=== PATIENT | female | born 1970 | race Hispanic/Latino ===

== ENCOUNTER 2018-05-06 07:28 | Outpatient (CLI) | payer OTHER ==
--- NOTE | 2018-05-06 10:29 | CT ---
CT ABDOMEN AND PELVIS WITH AND WITHOUT CONTRAST: (Microhematuria protocol) Date: 05/06/18 HISTORY: Microhematuria with pelvic pressure x3 weeks. R31.29. COMPARISON: None. FINDINGS: On the noncontrast portion of the examination, lung bases are clear. No pericardial effusion. There is no nephroureterolithiasis or hydroureteronephrosis. No secondary evidence of recently passed stone. No abnormal renal enhancing mass. No filling defect within the renal calices, ureters, nor th e posterior portion of the urinary bladder. Both ureteral jets are visualized. Spleen is unremarkable, as well as the pancreas. Adrenal glands are unremarkable. No retroperitoneal adenopathy. No dilated loops of large or small bowel. Small volume free fluid in t he pelvis. No dilated loops of large or small bowel. Mild diverticular disease sigmoid colon without active curr ent inflammation. Appendix is felt to be visualized and appears normal. IMPRESSION: No findings to explain patient's microhematuria. No nephroureterolithiasis or hydroureteronephrosis. No secondary evidence of recently passed stone. No abnormal filling defect renal calices, ureters, or urinary bladder. No abnormal enhancing renal mass. POS: [facility]
[2018-05-06] MEDS ORDERED: Iopamidol 370 76% 100 ML VIAL ONE (12:55)
== END 2018-05-06 07:29 | disposition home or self-care (01) ==
LOC: BICCT 07:28 → CT 07:29
PROVIDERS: ATTEND Urology
DX: R31.29 Other microscopic hematuria (principal)
CPT/HCPCS: 74178

== ENCOUNTER 2018-05-27 07:58 | Outpatient (CLI) | payer OTHER | END 2018-05-27 07:59 | disposition home or self-care (01) | LOC: BICMAMMO 07:58 | PROVIDERS: ATTEND Family Medicine | DX: Z12.31 Encounter for screening mammogram for malignant neoplasm of breast (principal); R92.1 Mammographic calcification found on diagnostic imaging of breast | CPT/HCPCS: 77063; 77067 ==

== ENCOUNTER 2019-06-02 07:58 | Outpatient (CLI) | payer BC ==
--- NOTE | 2019-06-02 10:09 | MMO ---
Bilateral MAMMO Bilat Screen [facility]. CLINICAL HISTORY: Patient is 49 years old and is seen for screening. The patient has no family history of breast cancer. The patient has no personal history of cancer. VIEWS: The views performed were: bilateral craniocaudal with tomosynthesis and bilateral mediolateral oblique with tomosynthesis. FILMS COMPARED: The present examination has been compared to prior imaging studies performed at [facility] on 04/28/2015, 04/30/2016, 05/21/2017 and 05/27/2018. MAMMOGRAM FINDINGS: There are scattered fibroglandular densities. There are stable benign appearing calcifications seen in both breasts. There are no suspicious masses, suspicious calcifications, or new areas of architectural distortion. IMPRESSION: THERE IS NO MAMMOGRAPHIC EVIDENCE OF MALIGNANCY. A ROUTINE FOLLOW-UP MAMMOGRAM IN 1 YEAR IS RECOMMENDED. THE RESULTS OF THIS EXAM WERE SENT TO THE PATIENT. ACR BI-RADS Category 2 - Benign finding MAMMOGRAPHY NOTE: 1. A negative mammogram report should not delay a biopsy if a dominant of clinically suspicious mass is present. 2. Approximately 10% to 15% of breast cancers are not detected by mammography. 3. Adenosis and dense breasts may obscure an underlying neoplasm.
== END 2019-06-02 07:59 | disposition home or self-care (01) ==
LOC: BICMAMMO 07:58
PROVIDERS: ATTEND Family Medicine
DX: Z12.31 Encounter for screening mammogram for malignant neoplasm of breast (principal)
CPT/HCPCS: 77063; 77067

== ENCOUNTER 2019-11-05 16:22 | Emergency (ER) | payer BC ==
[2019-11-05] MEDS ORDERED: predniSONE 20 MG TAB ONE (16:53)
[2019-11-05] MEDS ORDERED: Famotidine 20 MG TAB ONE (16:53)
== END 2019-11-05 19:10 | disposition home or self-care (01) ==
LOC: ERS 16:22
DX: T78.09XA Anaphylactic reaction due to other food products, initial encounter (principal); R21 Rash and other nonspecific skin eruption; F41.9 Anxiety disorder, unspecified; F41.0 Panic disorder [episodic paroxysmal anxiety]
CPT/HCPCS: 99284; J7512

== ENCOUNTER 2019-11-08 10:21 | Emergency (ER) | payer BC ==
[2019-11-08 11:00] LABS: #Lymphocytes 1.4 thou/uL (1.20-3.40); #Monocytes 0.3 thou/uL (0.11-0.59); #Neutrophils 8.6 thou/uL (1.40-6.50); %Basophils 0.2 % (0.0-1.0); %Eosinophils 0.3 % (0.0-10.0); %Lymphocytes 13.4 % (21.0-51.0); %Monocytes 2.7 % (0.0-10.0); %Neutrophils 83.4 % (42.0-75.0); Hemoglobin 13.7 g/dL (12.0-16.0); Mean Corpuscular HGB CONC 34.2 g/dL (32.0-36.0); Mean Corpuscular Hemoglobin 30.4 pg (27.0-31.0); Mean Corpuscular Volume 88.7 fL (78.0-98.0); Mean Platelet Volume 6.9 fL (7.4-10.4); Platelet Count 231 thou/uL (130-400); RBC Distribution Width 11.5 % (11.5-14.5); Red Blood Cell (RBC) Count 4.53 mill/uL (4.20-5.40); White Blood Cell (WBC) Count 10.4 thou/uL (4.8-10.8)
[2019-11-08 11:17] LABS: ALT (SGPT) 15 U/L (8-55); AST (SGOT) 11 U/L (5-34); Albumin 4.6 g/dL (3.5-5.0); Alkaline Phosphatase 125 U/L (40-110); Anion Gap 15 mmol/L (10-20); BUN (Urea Nitrogen) 14 mg/dL (7.0-18.7); Bilirubin, Total 0.9 mg/dL (0.2-1.2); Calc. Creatinine Clearance 0 mL/min (70-130); Calcium 9.5 mg/dL (7.8-10.44); Carbon Dioxide 22 mmol/L (22-29); Chloride 110 mmol/L (98-107); Estimated GFR-MDRD 69; Globulin 2.7 g/dL (2.4-3.5); Glucose 117 mg/dL (70-105); Lipase 21 U/L (8-78); Potassium 3.5 mmol/L (3.5-5.1); Protein, Total 7.3 g/dL (6.0-8.3); Sodium 143 mmol/L (136-145)
--- NOTE | 2019-11-08 11:44 | RAD ---
CHEST 1 VIEW: DATE: 11/08/2019. TIME: 12:10 p.m. HISTORY: Chest pain. FINDINGS: The cardiomediastinum is normal. The lungs are expanded and clear. The bony thorax is unremarkable. IMPRESSION: Normal exam. POS: [facility]
[2019-11-08 12:36] LABS: Troponin I Less than 0.010 ng/mL (< 0.028)
== END 2019-11-08 13:08 | disposition home or self-care (01) ==
LOC: ERS 10:21
DX: R07.89 Other chest pain (principal); F41.9 Anxiety disorder, unspecified; F41.0 Panic disorder [episodic paroxysmal anxiety]
CPT/HCPCS: 36415; 71045; 80053; 83690; 84484; 85025; 93005

== ENCOUNTER 2021-01-10 10:03 | Outpatient (CLI) | payer BC ==
--- NOTE | 2021-01-10 10:23 | MMO ---
Bilateral MAMMO Bilat Screen [facility]. CLINICAL HISTORY: Patient is 50 years old and is seen for screening. The patient has no family history of breast cancer. The patient has no personal history of cancer. VIEWS: The views performed were: bilateral craniocaudal with tomosynthesis and bilateral mediolateral oblique with tomosynthesis. FILMS COMPARED: The present examination has been compared to prior imaging studies performed at [facility] on 04/30/2016, 05/21/2017, 05/27/2018 and 06/02/2019. This study has been interpreted with the assistance of computer-aided detection. MAMMOGRAM FINDINGS: There are scattered fibroglandular densities. There are no suspicious masses, suspicious calcifications, or new areas of architectural distortion. IMPRESSION: THERE IS NO MAMMOGRAPHIC EVIDENCE OF MALIGNANCY. A ROUTINE FOLLOW-UP MAMMOGRAM IN 1 YEAR IS RECOMMENDED. THE RESULTS OF THIS EXAM WERE SENT TO THE PATIENT. ACR BI-RADS Category 1 - Negative MAMMOGRAPHY NOTE: 1. A negative mammogram report should not delay a biopsy if a dominant of clinically suspicious mass is present. 2. Approximately 10% to 15% of breast cancers are not detected by mammography. 3. Adenosis and dense breasts may obscure an underlying neoplasm. Reported by: SUDHIR JOYCE MD Electonically Signed: [id number]
== END 2021-01-10 10:04 | disposition home or self-care (01) ==
LOC: BICMAMMO 10:03
PROVIDERS: ATTEND Family Medicine
DX: Z12.31 Encounter for screening mammogram for malignant neoplasm of breast (principal)
CPT/HCPCS: 77063; 77067

== ENCOUNTER 2023-07-29 15:40 | Outpatient (CLI) | payer OTHER | END 2023-07-29 15:41 | disposition home or self-care (01) | LOC: BICMAMMO 15:40 | PROVIDERS: ATTEND Family Medicine | DX: Z12.31 Encounter for screening mammogram for malignant neoplasm of breast (principal) | CPT/HCPCS: 77067 ==

== ENCOUNTER 2025-09-02 08:25 | Emergency (ER) | payer BC, OTHER | END 2025-09-02 11:57 | disposition home or self-care (01) | LOC: ERS 08:25 | DX: T78.40XA Allergy, unspecified, initial encounter (principal); I48.91 Unspecified atrial fibrillation | CPT/HCPCS: 93005; 96374; J2919 ==

== ENCOUNTER 2025-11-16 07:47 | Emergency (ER) | payer BC ==
[2025-11-16] MEDS ORDERED: Dexamethasone 10 MG/ML VIAL ONE (08:24)
[2025-11-16] MEDS ORDERED: predniSONE 20 MG TAB ONE (08:24)
== END 2025-11-16 10:10 | disposition home or self-care (01) ==
LOC: ERS 07:47
DX: T78.02XA Anaphylactic reaction due to shellfish (crustaceans), initial encounter (principal); X58.XXXA Exposure to other specified factors, initial encounter
CPT/HCPCS: 96372; 99282; J0169; J1100; J7512